=== PATIENT | female | born 1960 | race African-American/Black ===

== ENCOUNTER 2017-02-10 16:31 | Emergency (ER) | payer BC ==
[~2017-02-10] VITALS: Ht 160 cm; Wt 109.0 kg
[2017-02-10] MEDS ORDERED: ALBU18HF2 IH (16:57)
[2017-02-11] MEDS ORDERED: KETOROLAC 60MG/2ML VIAL IM ONE ×2 (01:00→09:45)
[2017-02-11] MEDS ORDERED: SODIUM CHLORIDE 0.9% 500 ML IV ONE (03:10)
[2017-02-11] MEDS ORDERED: LORAZEPAM 2MG/ML CPJ IV ONE (03:15)
[2017-02-11 12:30] VITALS: BP 125/70
== END 2017-02-11 13:00 | disposition home or self-care (01) ==
LOC: ER 16:31
DX: S06.9X9A Unspecified intracranial injury with loss of consciousness of unspecified duration, initial encounter (principal); S12.9XXA Fracture of neck, unspecified, initial encounter; S22.9XXA Fracture of bony thorax, part unspecified, initial encounter for closed fracture; J45.909 Unspecified asthma, uncomplicated; Z88.5 Allergy status to narcotic agent; Z88.2 Allergy status to sulfonamides; Z88.0 Allergy status to penicillin; Z53.29 Procedure and treatment not carried out because of patient's decision for other reasons; Y04.2XXA Assault by strike against or bumped into by another person, initial encounter; Y04.0XXA Assault by unarmed brawl or fight, initial encounter; Y93.89 Activity, other specified; Y92.830 Public park as the place of occurrence of the external cause
CPT/HCPCS: 70450; 70486; 71010; 72125; 72128; 72131; 72141; 72146; 74000; 76705; 96361; 96372; 96374; 99285; J1885; J2060; J7040; Z7610; L0172